=== PATIENT | female | born 1960 | race Caucasian/White ===

== ENCOUNTER 2018-09-15 10:14 | Emergency (ER) | payer MEDICAID ==
--- NOTE | 2018-09-15 12:45 | EDM.PDOC ---
ED HPI GENERAL MEDICAL PROBLEM - General Chief Complaint: Back Pain or Injury Stated Complaint: BACK PAIN Time Seen by Provider: 09/15/18 11:15 Source of Information: Reports: Patient History Limitations: Reports: No Limitations - History of Present Illness INITIAL COMMENTS - FREE TEXT/NARRATIVE: 57-year-old female presents for evaluation and treatment of back pain. Patient was seen at the walk-in clinic where she was reportedly be to be tachycardic. She has a heart rate of 86 upon arrival to the ER. Reports symptoms for the last 3 weeks. She is reporting pain primarily to her left mid back, worse with movement. No radiation into abdomen, neck or legs. She is reporting the pain as a 5 or 6 out of 10 ar this time. She reports associated symptoms of chills. No chest pain, shortness of breath, abdominal pain, nausea, vomiting, dysuria, hematuria, numbness or tingling in extremities or any syncope. She states that she did feel she was having palpitations and racing heart last night but is denying this currently. 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 Middle Back Pain Score (Numeric/FACES): 6 - Related Data Allergies Allergy/AdvReac Type Severity Reaction Status Date / Time No Known Allergies Allergy Verified 09/15/18 10:24 Home Meds: Home Meds Orphenadrine [Norflex] 100 mg PO BID PRN #20 tab 09/15/18 [Rx] Past Medical History - Past Health History Medical/Surgical History: Denies Medical/Surgical History Social & Family History - Family History Family Medical History: Noncontributory - Tobacco Use Smoking Status *Q: Never Smoker Second Hand Smoke Exposure: No - Caffeine Use Caffeine Use: Reports: None - Recreational Drug Use Recreational Drug Use: No ED ROS GENERAL - Review of Systems Review Of Systems: See Below Constitutional: Reports: Chills. Denies: Fever Respiratory: Denies: Shortness of Breath Cardiovascular: Reports: Palpitations (last night, nonw currently). Denies: Chest Pain GI/Abdominal: Denies: Abdominal Pain, Nausea, Vomiting : Denies: Dysuria, Hematuria Musculoskeletal: Reports: Back Pain (mid left back) Neurological: Denies: Numbness, Tingling ED EXAM, UPPER BACK/NECK PAIN - Physical Exam Exam: See Below Exam Limited By: No Limitations General Appearance: Alert, WD/WN, No Apparent Distress Throat/Mouth Exam: Normal Inspection, Normal Voice, No Airway Compromise Neck Exam: Non-Tender, Full Range of Motion, Normal Alignment Cardiovascular/Respiratory: Regular Rate, Rhythm, No M/R/G, Normal Peripheral Pulses GI/Abdominal: Normal Bowel Sounds, Soft, Non-Tender Back Exam: Normal Inspection, Full Range of Motion (reports some worsening discomfort wiht rotation), CVA Tenderness (L). No: Paraspinal Tenderness ( unable to ilicit tenderness with palpaion to the paraspinal muscles), Vertebral Tenderness Extremities: Normal Inspection Psychiatric: Normal Affect, Normal Mood Skin Exam: Normal Color, Warm/Dry Course - Vital Signs Last Recorded V/S: Last Vital Signs Temp 96.8 F 09/15/18 10:25 Pulse 86 09/15/18 10:25 Resp 14 09/15/18 10:25 BP 153/97 H 09/15/18 10:25 Pulse Ox 97 09/15/18 10:25 - Orders/Labs/Meds Labs: Laboratory Tests 09/15/18 Range/Units 11:49 Urine Color Yellow (Yellow) Urine Appearance Clear (Clear) Urine pH 6.5 (5.0-8.0) Ur Specific [place] 1.025 (1.005-1.030) Urine Protein 1+ H (Negative) Urine Glucose (UA) Negative (Negative) Urine Ketones Negative (Negative) Urine Occult Blood Trace-intact H (Negative) Urine Nitrite Negative (Negative) Urine Bilirubin Negative (Negative) Urine Urobilinogen 0.2 (0.2-1.0) Ur Leukocyte Esterase Negative (Negative) Urine RBC 0-5 (0-5) /hpf Urine WBC 0-5 (0-5) /hpf Ur Epithelial Cells 0-5 (0-5) /hpf Urine Bacteria Rare (FEW) /hpf Urine Mucus Not seen (FEW) /hpf - Re-Assessments/Exams Free Text/Narrative Re-Assessment/Exam: 09/15/18 12:41 Reviewed the urine results the patient. Do feel this is more musculoskeletal. She is denying chest pain, shortness of breath or abdominal pain and continues to do so. Pain is not exaggerated by any deep breathing. Movement does seem to exaggerate the pain. After discussion with the patient sounds like that she is not actually evaluated in the clinic and was not found to be tachycardca but had reported the palpitations and therefore was sent here. We will try some muscle relaxers and I will discharge her home. Instructed to follow-up in the clinic within 2 weeks if not much better. Discharge instructions as documented. Departure - Departure Time of Disposition: 12:41 Disposition: Home, Self-Care 01 Condition: Fair Clinical Impression: Muscle spasm of back - Discharge Information *PRESCRIPTION DRUG MONITORING PROGRAM REVIEWED*: No *COPY OF PRESCRIPTION DRUG MONITORING REPORT IN PATIENT MICHELLE: No Prescriptions: Orphenadrine [Norflex] 100 mg PO BID PRN #20 tab PRN Reason: Muscle Spasm Instructions: Muscle Cramps and Spasms, [id number] Referrals: PCP,None [Primary Care Provider] - Diana Ward MD [Ordering Only Provider] - Forms: ED Department Discharge Additional Instructions: Recommend taking ibuprofen every 6-8 hours for pain. Do not take more than 3200 mg of ibuprofen in 1 day. Take ibuprofen with food. Norflex 1 tab twice daily as needed for muscle pain and spasm. This medication may make you drowsy. Do not drive until you know how this medication will affect you. Recommend using moist heat to the sore area for additional pain relief. may also use a topical products such as icy hot or BenGay. I do recommend you establish with a primary care provider . Recommend Heather Tate or Diana Ward at [place]. Call [phone] to schedule with one of these providers. Please follow-up with one of these providers at her symptoms have not improved within 2 weeks. Please return to ER if your symptoms change or worsen.
== END 2018-09-15 13:10 | disposition home or self-care (01) ==
LOC: JD.ED 10:14
DX: M62.830 Muscle spasm of back (principal)
CPT/HCPCS: 81001; 99283